=== PATIENT | male | born 1980 | race Two or more races ===

== ENCOUNTER 2022-01-02 14:00 | Outpatient (CLI) | payer BC | END 2022-01-02 23:59 | disposition home or self-care (01) | LOC: MRI 14:00 | PROVIDERS: ATTEND Internal Medicine Interventional Cardiology | DX: S43.431A Superior glenoid labrum lesion of right shoulder, initial encounter (principal); M25.411 Effusion, right shoulder; X58.XXXA Exposure to other specified factors, initial encounter; Y93.89 Activity, other specified; Y92.89 Other specified places as the place of occurrence of the external cause; Y99.8 Other external cause status | CPT/HCPCS: 73221-TC ==

== ENCOUNTER 2022-01-22 11:33 | Outpatient (CLI) | payer BC | END 2022-01-22 23:59 | disposition home or self-care (01) | LOC: MRI 11:33 | PROVIDERS: ATTEND Internal Medicine Interventional Cardiology | DX: S73.191A Other sprain of right hip, initial encounter (principal); M94.251 Chondromalacia, right hip; R60.0 Localized edema; X58.XXXA Exposure to other specified factors, initial encounter; Y93.89 Activity, other specified; Y92.89 Other specified places as the place of occurrence of the external cause; Y99.8 Other external cause status | CPT/HCPCS: 73721-TC ==